=== PATIENT | female | born 1950 | race Caucasian/White ===

== ENCOUNTER 2019-11-23 16:56 | Outpatient (CLI) | payer BC ==
[2019-11-23 17:35] LABS: CREATININE 1.07 mg/dL (0.55-1.02)
[2019-11-23] MEDS ORDERED: OMNIPAQUE 350 MG/ML, 100ML BOTTLE ONE (18:24)
== END 2019-11-23 23:59 | disposition home or self-care (01) ==
LOC: RAD 16:56
PROVIDERS: ATTEND Family Medicine
DX: K57.92 Diverticulitis of intestine, part unspecified, without perforation or abscess without bleeding (principal); K76.89 Other specified diseases of liver; N20.0 Calculus of kidney; K42.9 Umbilical hernia without obstruction or gangrene; D25.9 Leiomyoma of uterus, unspecified; M43.07 Spondylolysis, lumbosacral region
CPT/HCPCS: 36415; 74177; 82565; Q9967

== ENCOUNTER → 2020-09-28 | Outpatient (CLI) | payer BC ==
[~2020-09-28] MED LIST: BUPR300T94 PO; DESV50TA PO; LISI5TAB7 PO; OMEP20TA62 PO
== END | disposition home or self-care (01) ==
LOC: STAR 13:44
PROVIDERS: ATTEND Obstetrics & Gynecology
DX: Z01.818 Encounter for other preprocedural examination (principal); N95.0 Postmenopausal bleeding; N84.0 Polyp of corpus uteri; K44.9 Diaphragmatic hernia without obstruction or gangrene; Z20.822 Contact with and (suspected) exposure to COVID-19
CPT/HCPCS: 71046; 87635; 93005